=== PATIENT | female | born 1950 | race Caucasian/White ===

== ENCOUNTER 2020-08-05 20:31 | Emergency (ER) | payer MEDICARE, OTHER ==
[2020-08-05] MEDS ORDERED: cefTRIAXone 1 GM in Sodium Chloride 0.9% 100 ML IV ONE ×2 (21:47→22:22)
[2020-08-05] MEDS ORDERED: Ketorolac 30 MG/ML SDV IVPUSH ONE (21:47)
[2020-08-05] MEDS ORDERED: Ciprofloxacin in D5W 400 MG in Premix Bag 1 BAG IV ONE ×2 (21:48)
[2020-08-05] MEDS ORDERED: Sodium Chloride 0.9% 1,000 ML IV ONE (21:49)
--- NOTE | 2020-08-05 22:01 | EDM.PDOC ---
ED HPI GENERAL MEDICAL PROBLEM - General Chief Complaint: General Stated Complaint: fever, SCHULER, muscle aches, flank pain Time Seen by Provider: 08/05/20 20:40 Source of Information: Reports: Patient History Limitations: Reports: No Limitations - History of Present Illness INITIAL COMMENTS - FREE TEXT/NARRATIVE: Pt presents with fever, SCHULER, body aches and flank pain Thinks she may have UTI No SOB No chest pain No N/V/D No recent travel or Covid exposure Onset: Gradual Duration: Day(s):, Getting Worse Location: Reports: Head, Back, Generalized Quality: Reports: Ache Severity: Moderate Associated Symptoms: Reports: Fever/Chills, Headaches, Malaise, Weakness Treatments DEPARTMENT HELPER: Reports: NSAIDS Right Flank Pain Score (Numeric/FACES): 5 - Related Data Allergies Allergy/AdvReac Type Severity Reaction Status Date / Time No Known Allergies Allergy Verified 08/05/20 20:32 Home Meds: Home Meds LORazepam [Ativan] 1 mg PO BID PRN 07/18/14 [History] Venlafaxine HCl [Venlafaxine ER] 150 mg PO BEDTIME 07/18/14 [History] Venlafaxine [Effexor XR] 75 mg PO BEDTIME 07/18/14 [History] buPROPion HCL [Wellbutrin SR] 150 mg PO DAILY 07/18/14 [History] Propranolol HCl 40 mg PO BID 08/23/14 [History] Varenicline [Chantix] 1 mg PO BID 08/23/14 [History] Albuterol [Ventolin HFA] 1 - 2 puff INH Q4H PRN 09/15/18 [History] Aspirin 81 mg PO DAILY 09/15/18 [History] Losartan [Cozaar] 25 mg PO DAILY 09/15/18 [History] Phentermine HCl [Adipex-P] 37.5 mg PO BID 09/15/18 [History] Topiramate 50 mg PO BID 09/15/18 [History] Triamcinolone Acetonide [Triamcinolone Acetonide 0.1% Crm] 1 applic .XX BID 09/15/18 [History] atorvaSTATin [Lipitor] 10 mg PO BEDTIME 09/15/18 [History] metFORMIN [Glucophage] 1,000 mg PO BIDMEALS 09/15/18 [History] Past Medical History Cardiovascular History: Reports: Hypertension Gastrointestinal History: Reports: Colon Polyp, Diverticulosis Musculoskeletal History: Reports: Other (See Below) Other Musculoskeletal History: bunions Psychiatric History: Reports: Anxiety, Depression, Other (See Below) Other Psychiatric History: insomnia - Past Surgical History GI Surgical History: Reports: Colonoscopy, EGD, Polypectomy Female Surgical History: Reports: Hysterectomy Musculoskeletal Surgical History: Reports: Other (See Below) Other Musculoskeletal Surgeries/Procedures:: bunionectomy Social & Family History - Tobacco Use Smoking Status *Q: Current Every Day Smoker Years of Tobacco use: 55 Packs/Tins Daily: 1 Used Tobacco, but Quit: No - Caffeine Use Caffeine Use: Reports: None - Recreational Drug Use Recreational Drug Use: No - Living Situation & Occupation Living situation: Reports: Occupation: Employed ED ROS GENERAL - Review of Systems Review Of Systems: See Below Constitutional: Reports: Fever, Chills, Malaise, Weakness, Fatigue HEENT: Reports: No Symptoms Respiratory: Reports: No Symptoms Cardiovascular: Reports: No Symptoms GI/Abdominal: Reports: No Symptoms Musculoskeletal: Reports: Muscle Pain Neurological: Reports: No Symptoms Psychiatric: Reports: No Symptoms ED EXAM, GENERAL - Physical Exam Exam: See Below Exam Limited By: No Limitations General Appearance: Moderate Distress Ears: Normal External Exam Nose: Normal Inspection Throat/Mouth: Normal Oropharynx Head: Atraumatic Neck: Supple Respiratory/Chest: Lungs Clear Cardiovascular: Regular Rate, Rhythm GI/Abdominal: Soft, Non-Tender (Female) Exam: Other (Bilateral flank pain) Extremities: Normal Inspection Neurological: Alert, Oriented Psychiatric: Normal Affect, Normal Mood Course - Vital Signs Last Recorded V/S: Last Vital Signs Temp 100.4 F 08/05/20 20:42 Pulse 100 08/05/20 20:42 Resp 15 08/05/20 20:42 BP 140/56 L 08/05/20 20:42 Pulse Ox 94 L 08/05/20 20:42 - Orders/Labs/Meds Orders: Active Orders 24 hr Category Date Time Status Chest 1V Frontal [CR] Stat Exams 08/05/20 20:38 Taken CORONAVIRUS COVID-19 LEEROY [MOLEC] Stat Lab 08/05/20 20:39 Ordered CULTURE BLOOD [BC] Stat Lab 08/05/20 21:13 Received CULTURE BLOOD [BC] Stat Lab 08/05/20 21:18 Received CULTURE URINE [RM] Stat Lab 08/05/20 21:10 Received INFLUENZA A+B AG SCREEN [RM] Stat Lab 08/05/20 20:39 Ordered Ciprofloxacin in D5W [Cipro in D5W 400 MG/200 ML] 400 Med 08/05/20 21:48 Ordered mg Premix Bag 1 bag IV ONETIME Sodium Chloride 0.9% [Normal Saline] 1,000 ml Med 08/05/20 21:49 Ordered IV .BOLUS cefTRIAXone [Rocephin] 1 gm Med 08/05/20 21:47 Ordered Sodium Chloride 0.9% [Normal Saline] 100 ml IV ONETIME Blood Culture x2 Reflex Set [OM.PC] Stat Oth 08/05/20 21:05 Ordered Isolation [COMM] Routine Oth 08/05/20 20:41 Active Medication Orders Ceftriaxone Sodium 1 gm/ (Sodium Chloride) 100 mls @ 200 mls/hr IV ONETIME ONE Stop: 08/05/20 22:16 Ciprofloxacin/Dextrose 400 mg/ (Premix) 200 mls @ 200 mls/hr IV ONETIME ONE Stop: 08/05/20 22:47 Sodium Chloride (Normal Saline) 1,000 mls @ 1,000 mls/hr IV .BOLUS ONE Stop: 08/05/20 22:48 Labs: Laboratory Tests 08/05/20 08/05/20 08/05/20 Range/Units 20:55 20:55 21:10 WBC 24.7 H (4.0-10.2) K/uL RBC 4.63 (3.77-5.09) M/uL Hgb 13.7 (11.7-15.5) g/dL Hct 41.6 (34.0-46.0) % MCV 89.8 (84.0-98.0) fL MCH 29.6 (28.2-33.3) pg MCHC 32.9 (31.7-36.0) g/dL RDW 13.3 (11.2-14.1) % Plt Count 226 (150-350) K/uL Neut % (Auto) 83.8 H (45.0-80.0) % Lymph % (Auto) 9.5 L (10.0-50.0) % [place] % (Auto) 6.1 (2.0-14.0) % Eos % (Auto) 0.5 (0.0-5.0) % Baso % (Auto) 0.1 (0.0-2.0) % Neut # (Auto) 20.70 H (1.40-7.00) K/uL Lymph # (Auto) 2.34 (0.50-3.50) K/uL [place] # (Auto) 1.50 H (0.00-1.00) K/uL Eos # (Auto) 0.12 (0.00-0.50) K/uL Baso # (Auto) 0.03 (0.00-0.20) K/uL Sodium 139 (136-145) mmol/L Potassium 3.4 L (3.5-5.1) mmol/L Chloride 104 (98-107) mmol/L Carbon Dioxide 21.1 (21.0-32.0) mmol/L BUN 41 H (7-18) mg/dL Creatinine 1.16 (0.51-1.17) mg/dL Est Cr Clr Drug Dosing 37.86 mL/min Estimated GFR (MDRD) 46 mL/min Glucose 106 (74-106) mg/dL Lactic Acid (0.4-2.0) mmol/L Calcium 8.7 (8.5-10.1) mg/dL Specimen Type Urincc Urine Color Yellow Urine Appearance Cloudy Urine pH 5.5 (5.0-9.0) Ur Specific [place] 1.025 (1.005-1.030) Urine Protein 100 H (NEGATIVE) mg/dL Urine Glucose (UA) Negative (NEGATIVE) mg/dL Urine Ketones Negative (NEGATIVE) mg/dL Urine Occult Blood Small H (NEGATIVE) Urine Nitrite Positive H (NEGATIVE) Urine Bilirubin Negative (NEGATIVE) Urine Urobilinogen 0.2 (0.2-1.0) E.U./dL Ur Leukocyte Esterase Large H (NEGATIVE) Urine RBC 0-5 /HPF Urine WBC 50-75 H /HPF Ur Epithelial Cells Moderate H /LPF Urine Bacteria Moderate H (NONE TO FEW) /HPF 08/05/20 Range/Units 21:13 WBC (4.0-10.2) K/uL RBC (3.77-5.09) M/uL Hgb (11.7-15.5) g/dL Hct (34.0-46.0) % MCV (84.0-98.0) fL MCH (28.2-33.3) pg MCHC (31.7-36.0) g/dL RDW (11.2-14.1) % Plt Count (150-350) K/uL Neut % (Auto) (45.0-80.0) % Lymph % (Auto) (10.0-50.0) % [place] % (Auto) (2.0-14.0) % Eos % (Auto) (0.0-5.0) % Baso % (Auto) (0.0-2.0) % Neut # (Auto) (1.40-7.00) K/uL Lymph # (Auto) (0.50-3.50) K/uL [place] # (Auto) (0.00-1.00) K/uL Eos # (Auto) (0.00-0.50) K/uL Baso # (Auto) (0.00-0.20) K/uL Sodium (136-145) mmol/L Potassium (3.5-5.1) mmol/L Chloride (98-107) mmol/L Carbon Dioxide (21.0-32.0) mmol/L BUN (7-18) mg/dL Creatinine (0.51-1.17) mg/dL Est Cr Clr Drug Dosing mL/min Estimated GFR (MDRD) mL/min Glucose (74-106) mg/dL Lactic Acid 2.2 H (0.4-2.0) mmol/L Calcium (8.5-10.1) mg/dL Specimen Type Urine Color Urine Appearance Urine pH (5.0-9.0) Ur Specific [place] (1.005-1.030) Urine Protein (NEGATIVE) mg/dL Urine Glucose (UA) (NEGATIVE) mg/dL Urine Ketones (NEGATIVE) mg/dL Urine Occult Blood (NEGATIVE) Urine Nitrite (NEGATIVE) Urine Bilirubin (NEGATIVE) Urine Urobilinogen (0.2-1.0) E.U./dL Ur Leukocyte Esterase (NEGATIVE) Urine RBC /HPF Urine WBC /HPF Ur Epithelial Cells /LPF Urine Bacteria (NONE TO FEW) /HPF Meds: Medications Generic Name Dose Route Start Last Admin Trade Name Freq PRN Reason Stop Dose Admin Ceftriaxone Sodium 1 gm/ 100 mls @ 200 mls/hr 10/04/20 21:47 Sodium Chloride IV 08/05/20 22:16 ONETIME ONE Ciprofloxacin/Dextrose 400 mg/ 200 mls @ 200 mls/hr 08/05/20 21:48 Premix IV 08/05/20 22:47 ONETIME ONE Sodium Chloride 1,000 mls @ 1,000 mls/hr 08/05/20 21:49 Normal Saline IV 08/05/20 22:48 .BOLUS ONE Discontinued Medications Generic Name Dose Route Start Last Admin Trade Name Javy PRN Reason Stop Dose Admin Ketorolac Tromethamine 30 mg 08/05/20 21:47 Toradol IVPUSH 08/05/20 21:48 ONETIME ONE - Re-Assessments/Exams Free Text/Narrative Re-Assessment/Exam: 08/05/20 21:59 See lab Pt does not desire admit at this time Will give Cipro 400 mg IV, Rocephin 1 gm IV, Toradol 30 mg IV, 1 L NS Pt will be placed on oral Cipro If worse, pt to return to ER for admit Covid and Influenza pending Departure - Departure Time of Disposition: 23:00 Disposition: Home, Self-Care 01 Clinical Impression: UTI, Urinary tract infectious disease - Discharge Information *PRESCRIPTION DRUG MONITORING PROGRAM REVIEWED*: Not Applicable *COPY OF PRESCRIPTION DRUG MONITORING REPORT IN PATIENT FRANCIA: Not Applicable Instructions: Urinary Tract Infection, Adult Referrals: PCP,None [Primary Care Provider] - Additional Instructions: Tylenol or Motrin as needed Rx Cipro 500 mg PO BID for 10 days Await pending lab Follow up in clinic in 24 to 48 hours To ER if worse Sepsis Event Note (ED) - Evaluation Sepsis Screening Result: No Definite Risk - Focused Exam Vital Signs: Vital Signs Temp Pulse Resp BP Pulse Ox 08/05/20 20:42 100.4 F 100 15 140/56 L 94 L - My Orders Last 24 Hours: My Active Orders 08/05/20 20:38 Chest 1V Frontal [CR] Stat 08/05/20 20:39 CORONAVIRUS COVID-19 LEEROY [MOLEC] Stat INFLUENZA A+B AG SCREEN [RM] Stat 08/05/20 20:41 Isolation [COMM] Routine 08/05/20 21:05 Blood Culture x2 Reflex Set [OM.PC] Stat 08/05/20 21:10 CULTURE URINE [RM] Stat 08/05/20 21:13 CULTURE BLOOD [BC] Stat 08/05/20 21:18 CULTURE BLOOD [BC] Stat 08/05/20 21:47 cefTRIAXone [Rocephin] 1 gm Sodium Chloride 0.9% [Normal Saline] 100 ml IV ONETIME 08/05/20 21:48 Ciprofloxacin in D5W [Cipro in D5W 400 MG/200 ML] 400 mg Premix Bag 1 bag IV ONETIME 08/05/20 21:49 Sodium Chloride 0.9% [Normal Saline] 1,000 ml IV .BOLUS - Assessment/Plan Last 24 Hours: My Active Orders 08/05/20 20:38 Chest 1V Frontal [CR] Stat 08/05/20 20:39 CORONAVIRUS COVID-19 LEEROY [MOLEC] Stat INFLUENZA A+B AG SCREEN [RM] Stat 08/05/20 20:41 Isolation [COMM] Routine 08/05/20 21:05 Blood Culture x2 Reflex Set [OM.PC] Stat 08/05/20 21:10 CULTURE URINE [RM] Stat 08/05/20 21:13 CULTURE BLOOD [BC] Stat 08/05/20 21:18 CULTURE BLOOD [BC] Stat 08/05/20 21:47 cefTRIAXone [Rocephin] 1 gm Sodium Chloride 0.9% [Normal Saline] 100 ml IV ONETIME 08/05/20 21:48 Ciprofloxacin in D5W [Cipro in D5W 400 MG/200 ML] 400 mg Premix Bag 1 bag IV ONETIME 08/05/20 21:49 Sodium Chloride 0.9% [Normal Saline] 1,000 ml IV .BOLUS
== END 2020-08-05 23:50 | disposition home or self-care (01) ==
LOC: LL.ED 20:31
DX: N39.0 Urinary tract infection, site not specified (principal); I10 Essential (primary) hypertension; F41.9 Anxiety disorder, unspecified; F32.9 Major depressive disorder, single episode, unspecified; F17.210 Nicotine dependence, cigarettes, uncomplicated; Z90.710 Acquired absence of both cervix and uterus; Z79.899 Other long term (current) drug therapy; Z11.59 Encounter for screening for other viral diseases
CPT/HCPCS: 36415; 71045; 80048; 81001; 83605; 85025; 87040; 87086; 87088; 87186; 87804; 96365; 96368; 96375; 99283; 99284-25; J0696; J0744; J1885; J7030; J7050; U0002

== ENCOUNTER 2024-09-25 17:49 | Emergency (ER) | payer MEDICARE, OTHER ==
[2024-09-25 18:32] LABS: BASOPHILS ABSOLUTE AUTO 0.08 K/uL (0.00-0.20); BASOPHILS PERCENT AUTO 0.5 % (0.0-2.0); EOSINOPHILS ABSOLUTE AUTO 0.31 K/uL (0.00-0.50); EOSINOPHILS PERCENT AUTO 2.1 % (0.0-5.0); HEMATOCRIT 41.5 % (34.0-46.0); HEMOGLOBIN 13.4 g/dL (11.7-15.5); IMMATURE GRAN ABSOLUTE AUTO 0.02 10^3/uL (0.00-0.50); IMMATURE GRAN PERCENT AUTO 0.1 % (0.0-5.0); LYMPHOCYTES ABSOLUTE AUTO 3.85 K/uL (0.50-3.50); LYMPHOCYTES PERCENT AUTO 26.3 % (10.0-50.0); MEAN CORPUSCULAR HEMOGLOBIN 30.7 pg (28.2-33.3); MEAN CORPUSCULAR HGB CONC 32.3 g/dL (31.7-36.0); MEAN CORPUSCULAR VOLUME 95.2 fL (84.0-98.0); MONOCYTES ABSOLUTE AUTO 0.96 K/uL (0.00-1.00); MONOCYTES PERCENT AUTO 6.5 % (2.0-14.0); NEUTROPHILS ABSOLUTE AUTO 9.44 K/uL (1.40-7.00); NEUTROPHILS PERCENT AUTO 64.5 % (45.0-80.0); PLATELET COUNT,PLT 194 K/uL (150-350); RED BLOOD CELL COUNT 4.36 M/uL (3.77-5.09); RED CELL DISTRIBUTION WIDTH 12.8 % (11.2-14.1); WHITE BLOOD CELL COUNT,WBC 14.7 K/uL (4.0-10.2)
[2024-09-25 18:43] LABS: INR 0.9 (0.9-1.1); PROTHROMBIN TIME 9.3 SEC (9.0-11.1)
[2024-09-25] MEDS: Diltiazem 120 MG Cap.CD PO ONE (18:46)
[2024-09-25] MEDS: Acetaminophen/HYDROcodone 325-5 MG Tab PO ONE (18:47)
[2024-09-25] MEDS: cloNIDine 0.1 MG Tab PO ONE (18:47)
[2024-09-25 18:48] LABS: ALANINE AMINOTRANSFERASE,ALT 19 U/L (12-78); ALBUMIN 2.5 g/dL (3.4-5.0); ALKALINE PHOSPHATASE 84 IU/L (46-116); ANION GAP 11.3 meq/L (7-15); ASPARTATE AMNIOTRANSFERASE,AST 11 U/L (15-37); BILIRUBIN TOTAL 0.3 mg/dL (0.2-1.0); BLOOD UREA NITROGEN,BUN 31 mg/dL (7-18); CALCIUM 8.6 mg/dL (8.5-10.1); CARBON DIOXIDE,CO2 24.7 mmol/L (21.0-32.0); CHLORIDE,CL 107 mmol/L (98-107); CREATININE 1.23 mg/dL (0.51-1.17); GLUCOSE RANDOM 91 mg/dL (70-99); POTASSIUM,K 3.8 mmol/L (3.5-5.1); PROTEIN TOTAL,TP 6.6 g/dL (6.4-8.2); SODIUM,NA 143 mmol/L (136-145)
[2024-09-25 18:51] LABS: ESTIMATED GFR 46 mL/min (>=60)
[2024-09-25] MEDS: Acetaminophen/oxyCODONE 325-5 MG Tab PO ONE (20:04)
[2024-09-25] MEDS: Take Home: oxyCODONE HCl 5 MG Tab, 5 Tab Pack PO ONE (20:54)
== END 2024-09-25 21:10 | disposition home or self-care (01) ==
LOC: LL.ED 17:49
DX: M79.662 Pain in left lower leg (principal); I10 Essential (primary) hypertension; E78.00 Pure hypercholesterolemia, unspecified; F17.210 Nicotine dependence, cigarettes, uncomplicated; Z79.899 Other long term (current) drug therapy
CPT/HCPCS: 36415; 80053; 85025; 85379; 85610; 99283; A9270-GY